=== PATIENT | female | born 1980 | race Caucasian/White ===

== ENCOUNTER 2019-08-08 13:42 | Inpatient (IN) | payer MEDICARE, MEDICAID, SELFPAY ==
[2019-08-08] VITALS (90 sets, daily range): BP systolic 0–140; BP diastolic 0–79; PULSE 60–105; RESP 16–18; TEMP 36.9; O2SAT 95–100; BMI 25.0
[2019-08-08] MEDS: dextrose 5%-lactated ringers 1,000 ML 125 ML IV (14:20)
[2019-08-08] MEDS: ampicillin 2,000 MG in sodium chloride 0.9% (plus) 50 ML 100 MG IV (14:20)
[2019-08-08 14:41] LABS: Basophils % 0.3 %; Eosinophils # 0.1 10^3/uL (0.0-0.8); Eosinophils % 0.4 %; Hematocrit 29.5 % (37.0-47.0); Hemoglobin 9.9 g/dL (11.5-15.3); Lymphocytes # 1.4 10^3/uL (0.8-4.8); Lymphocytes % 10.2 %; Mean Corpuscular HGB Conc 33.6 g/dL (30.0-36.0); Mean Corpuscular Hemoglobin 31.2 pg (28.0-34.0); Mean Corpuscular Volume 93.1 fL (81-99); Mean Platelet Volume 10.6 fL (7.4-10.4); Monocytes # 0.7 10^3/uL (0.2-0.9); Monocytes % 5.3 %; Neutrophils # 11.5 10^3/uL (1.8-7.7); Neutrophils % 83.3 %; Nucleated Red Blood Cells % 0 %; Platelet Count 312 10^3/cmm (130-400); Red Blood Count 3.17 10^6/uL (4.1-5.3); Red Cell Distribution Width 12.4 % (12.1-15.1); White Blood Count 13.8 10^3/uL (4.0-10.0)
[2019-08-08 14:44] LABS: Amphetamines Screen Urine Negative (Negative); Barbiturates Screen Urine Negative (Negative); Benzodiazepines Screen Urine Negative (Negative); Cocaine Screen Urine Negative (Negative); Opiate Screen Urine Negative (Negative); PCP Screen Urine Negative (Negative); THC Screen Urine Positive (Negative)
[2019-08-08 15:00] LABS: Rapid Plasma Reagin Syphilis Nonreactive (Nonreactive)
[2019-08-08 15:07] LABS: Hepatitis B Surface Antigen Non-Reactive (Nonreactive)
[2019-08-08 15:17] LABS: HIV 1 & 2 Antibody Non-Reactive (Non-Reactiv); HIV 1 & 2 Antigen Non-Reactive (Non-Reactiv)
[2019-08-08 15:20] LABS: Hepatitis A Antibody IgM Non-Reactive (Nonreactive); Hepatitis B Core AB, Total Non-Reactive (Nonreactive); Hepatitis B Surface AB 4.5 (0-8.5); Hepatitis B Surface Antigen Non-Reactive (Nonreactive); Hepatitis C Virus Antibody Non-Reactive (Nonreactive)
[2019-08-08] MEDS: oxytocin 30 UNIT/500 ML BAG IV (16:30)
--- NOTE | 2019-08-08 17:46 | P.HP_ITS ---
Providers/Chief Complaint Admitting Physician: Dougie Wyatt MD Primary Care Provider: NATHALIE Mooney Chief Complaint: Spontaneous rupture of membranes. History of Present Illness Denice Velasquez is a 38 year old female with an EDC of 08/27/2019 by dates. She has had no care during this . She is a 6 para 3 female who does not have custody of any of her children. She has spontaneous rupture membranes and beginning contractions around 1300 today. She had no care and therefore no labs done prior to arrival. Since arrival, her b lood work has been done with blood type O+ and antibody screen negative. The remainder the labs are normal except she did have a positive drug screen for marijuana which she admitted to smoking prior to drawing the labs. She has been started on ampicillin intravenously as well as Pitocin augmentation as she was not rick very strong. She denies any significant medical problems in the past. Review of Systems General: Reports: 10 or more systems reviewed and unremarkable except in HPI and below Const: Denies: fever(s), chills, change in appetite or fatigue ENMT: Denies: throat pain or nasal discharge Card: Denies: chest pain, palpitations, irregular heart rhythm or edema Resp: Denies: dyspnea or productive cough GI: Denies: abdominal pain, nausea or vomiting : Reports: amenorrhea and other (Rick every 2 to 3 minutes.); Denies: flank pain or difficulty voiding Musc: Denies: neck pain, back pain, extremity pain or joint swelling Skin/Breast: Denies: rash Neuro: Denies: headache(s), numbness in extremities, weakness in extremities or sensory changes Psych: Denies: anxiety or depression Medications/Allergies Home Medications Medication Instructions Recorded Confirmed Last Taken Type citalopram [Celexa] 20 mg PO DAILY 08/08/19 08/08/19 Unknown History Allergies Allergy/AdvReac Type Severity Reaction Status Date / Time No Known Allergies Allergy Verified 08/08/19 14:35 PFSH Acute PFSH: Social History (Updated 08/08/19 @ 14:49 by Hardik Dorman RN) Smoking and tobacco status: heavy tobacco smoker Quit status (tobacco): not considering quitting Smoking risk assessment/counseling performed?: Yes Substance/Drug Use: current Substance/Drug use frequency: daily Substance/Drug use type: Marijuana Desire information about substance/drug rehabilitation?: No Counseling given: No Female Reproductive History: Date of last menstrual period: 11/20/18 : 6 Vitals/I&O/Wt Last Vital Signs Temp 98.5 F 08/08/19 15:30 Pulse 67 08/08/19 17:29 Resp 18 08/08/19 15:30 BP 127/61 08/08/19 17:29 08/08/19 08/08/19 08/08/19 06:59 14:59 22:59 Intake Total 50 / 50 4.00 / 54.00 Balance 50 / 50 4.00 / 54.00 Weight last 48 hrs Weight 62.142 kg Physical Exam Const: COMMON NORMALS: no acute distress, average body habitus, patient oriented x3, no limitations, healthy appearing and well nourished HENMT: COMMON NORMALS: moist oral mucous membranes Neck/C-Spine: COMMON NORMALS: full ROM and no lymphadenopathy Resp: COMMON NORMALS: normal respiratory effort, No retractions, No use of accessory muscles and clear to auscultation bilaterally Cardio: COMMON NORMALS: no JVD, regular rate, regular rhythm and No murmurs present (Cardio) GI: COMMON NORMALS: Normal to inspection, nondistended, normoactive bowel sounds present (She is with a fundal height approximately 36 cm.) : OB/EXTERNAL & SPECULUM: external exam normal MANUAL OB EXAM: dilated 3 cm, effaced 75% and station high AMNIOTIC FLUID: clear Back/Pelvis: COMMON NORMALS: no CVA tenderness and thoracic and lumbar spine normal to inspection Extremity: COMMON NORMALS: normal to inspection, full ROM and capillary refill normal Neuro: COMMON NORMALS: patient oriented x3, CN's II-XII intact bilaterally, moves all extremities, no focal motor deficits and no sensory deficits noted Psych: COMMON NORMALS: mental status grossly normal, cooperative and normal affect Data : 08/08/19 13:45 A&P Assessment and plan (1) Spontaneous rupture of membranes: Based on her dates given I suspect she is a little over 37 weeks gestation . Presently as she is leaking fluid and making cervical change we will not make any other changes except active induction as indicated. Status: Acute (2) : She is 6 para 3 and has not had any significant problems with other pregnancies or labor and delivery. Status: Acute (3) No care in current : Patient was seen [address] Paniagua about mid but she did not follow-up with him or another provider until now. She states that was because she was afraid of coronavirus. Status: Acute Attestations Medical Necessity Statement*: Patient has a term or near term in active labor after spontaneous rupture of membranes. She requires inpatient hospitalization for labor and delivery process and care. 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
[2019-08-08] MEDS: ampicillin 1,000 MG in sodium chloride 0.9% (plus) 50 ML 100 MG IV ×2 (18:02→23:19)
[2019-08-08] MEDS: fentaNYL 50 mcg/mL INJ 2mL IV (19:29)
[2019-08-08] MEDS: lactated ringers 1,000 ML 999 ML IV ×2 (19:33→21:20)
--- NOTE | 2019-08-08 21:05 | ANES.PREANE2 ---
Pre-Anesthetic Assessment Pre-Anesthetic Assessment: Height/Weight: Height 1.57 m Weight 62.142 kg Temp Pulse Resp BP 98.5 F 67 18 105/54 08/08/19 15:30 08/08/19 20:59 08/08/19 19:29 08/08/19 20:59 Preop Diagnosis: labor pain Proposed Procedure: epidural Familial anesthetic complications: none Social: Social History: Tobacco and No alcohol Packs per day: 1 Exam: Pre-Anes Outpt Exam: alert, oriented x 3, clear to auscultation bilaterally and regular rate & rhythm Airway: Submandibular: WNL Cervical ROM: WNL MP: 1 Dentition: Chipped Pulmonary: Pulmonary: None reported CV/HEM: CV/HEM: None reported : : None reported Hepatic: Hepatic: None reported GI: GI: None reported Metabolic: Metabolic: None reported Musc/skel: Musc/skel: None reported Neuropsych: Neuropsych: Anxiety and Depression Anesthetic Plan: ASA status: 2 Anesthesia: Eval. for regional block and Regional (specify below) Risk of > 500 ml blood loss (7ml/kg in children): No Meds/Allergies Current Medications: Current Medications Generic Name Dose Route Start Last Admin Trade Name Freq PRN Reason Stop Dose Admin Fentanyl 25 - 100 mcg 08/08/19 19:03 08/08/19 19:29 Sublimaze IV 25 mcg Q1H PRN Administration SEVERE PAIN Ampicillin Sodium 1,000 mg/ 50 mls @ 100 mls/ hr 08/08/19 17:51 08/08/19 19:34 Sodium Chloride IV Infused Q4H AUBREY Infusion Protocol Dextrose/Lactated Ringer's 1,000 mls @ 125 m ls/hr 08/08/19 14:00 08/08/19 19:30 Dextrose 5%-Lact ated Ringers IV 0 mls/hr .Q8H AUBREY Infusion Ampicillin Sodium 2,000 mg/ 50 mls @ 100 mls/ hr 08/08/19 14:00 08/08/19 14:50 Sodium Chloride IV Infused ONCE AUBREY Infusion Protocol Oxytocin 30 unit in 500 ml s @ 1 mls/hr 08/08/19 16:30 08/08/19 18:00 Pitocin IV 11 milliunit/min .Q24H AUBREY 11 mls/hr Titration Protocol 1 MILLIUNIT/MIN PFSH Anesthesia PFSH: Social History (Updated 08/08/19 @ 14:49 by Hardik Dorman RN) Smoking and tobacco status: heavy tobacco smoker Quit status (tobacco): not considering quitting Smoking risk assessment/counseling performed?: Yes Substance/Drug Use: current Substance/Drug use frequency: daily Substance/Drug use type: Marijuana Desire information about substance/drug rehabilitation?: No Counseling given: No Female Reproductive History: Date of last menstrual period: 11/20/18 : 6 Data Anesthesia CBC & Chem 7: 08/08/19 13:45 Other Labs: Laboratory Results - last 48 hr 08/08/19 08/08/19 08/08/19 13:10 13:45 13:45 WBC 13.8 H RBC 3.17 L Hgb 9.9 L Hct 29.5 L MCV 93.1 MCH 31.2 MCHC 33.6 RDW 12.4 Plt Count 312 MPV 10.6 H Neut % (Auto) 83.3 Lymph % (Auto) 10.2 [place] % (Auto) 5.3 Eos % (Auto) 0.4 Baso % (Auto) 0.3 Neut # (Auto) 11.5 H Lymph # (Auto) 1.4 [place] # (Auto) 0.7 Eos # (Auto) 0.1 Baso # (Auto) 0.0 Nucleated RBC % (auto) 0 Nucleated RBCs # 0.0 Urine Opiates Screen Negative Ur Barbiturates Screen Negative Ur Phencyclidine Scrn Negative Ur Amphetamines Screen Negative U Benzodiazepines Scrn Negative Urine Cocaine Screen Negative U Marijuana (THC) Screen Positive H RPR Nonreactive Hepatitis A IgM Ab Hep Bs Antigen Hep Bs Antibody Hep B Core Total Ab Hepatitis C Antibody HIV 1&2 Ab & HIV 1 Ag HIV 1&2 Antibody Rubella IgG Antibody 96.0 H Blood Type Rho(D) Type Antibody Screen 08/08/19 08/08/19 08/08/19 13:45 13:45 13:45 WBC RBC Hgb Hct MCV MCH MCHC RDW Plt Count MPV Neut % (Auto) Lymph % (Auto) [place] % (Auto) Eos % (Auto) Baso % (Auto) Neut # (Auto) Lymph # (Auto) [place] # (Auto) Eos # (Auto) Baso # (Auto) Nucleated RBC % (auto) Nucleated RBCs # Urine Opiates Screen Ur Barbiturates Screen Ur Phencyclidine Scrn Ur Amphetamines Screen U Benzodiazepines Scrn Urine Cocaine Screen U Marijuana (THC) Screen RPR Hepatitis A IgM Ab Hep Bs Antigen Non-reactive Hep Bs Antibody Hep B Core Total Ab Hepatitis C Antibody HIV 1&2 Ab & HIV 1 Ag Non-reactive HIV 1&2 Antibody Non-reactive Rubella IgG Antibody Blood Type O Positive Rho(D) Type Positive Antibody Screen Negative 08/08/19 13:45 WBC RBC Hgb Hct MCV MCH MCHC RDW Plt Count MPV Neut % (Auto) Lymph % (Auto) [place] % (Auto) Eos % (Auto) Baso % (Auto) Neut # (Auto) Lymph # (Auto) [place] # (Auto) Eos # (Auto) Baso # (Auto) Nucleated RBC % (auto) Nucleated RBCs # Urine Opiates Screen Ur Barbiturates Screen Ur Phencyclidine Scrn Ur Amphetamines Screen U Benzodiazepines Scrn Urine Cocaine Screen U Marijuana (THC) Screen RPR Hepatitis A IgM Ab Non-reactive Hep Bs Antigen Non-reactive Hep Bs Antibody 4.5 Hep B Core Total Ab Non-reactive Hepatitis C Antibody Non-reactive HIV 1&2 Ab & HIV 1 Ag HIV 1&2 Antibody Rubella IgG Antibody Blood Type Rho(D) Type Antibody Screen Cardiac Studies: No Data to Display
--- NOTE | 2019-08-08 21:42 | P.ANES_ITS ---
Anesthesia Procedures Procedure/Date: 08/08/19 epidural Procedure Narrative: epidural complete, bolus given, epidural pump initiated with HANDLE ASSEMBLER education given, vitals taken during procedure using OBIX system and satisfactory throughout, patient admits to decrease pain, report of procedure to OB RN Epidural: Time Out Performed: Yes Consents Signed: Procedure Consent Consent: requested by attending/covering physician, from patient, risks and benefits reviewed and patient agrees to proceed Lumbar Level: L3-L4 Epidural position: sitting Epidural procedure: sterile prep of area, 1% lidocaine to numb the area (3 mL), 18 g needle, negative for paresthesia passed, neg for paresthesia, test dose given, 1.5% xylocaine 1:200k epi (5 mL), 0.2% Ropivacaine bolus ml (5 mL), placed PCEA, no systemic response, sterile dressing applied, L.U.D. no apparent complications and 0.2% Ropiavacaine @ mls/hr (13 mL/hr)
[2019-08-09] VITALS (18 sets, daily range): BP systolic 0–144; BP diastolic 0–78; PULSE 65–88; RESP 15–18; TEMP 36.5–36.9; O2SAT 98
--- NOTE | 2019-08-09 00:43 | PM.DELIVERY ---
Delivery Note: Date of delivery: August 09, 2019 this 38-year-old 6 now para 4 female with an EDC of 08/27/2019 had spontaneous rupture membranes around noon the day of admission. She began leaking fluid and having some contractions which began around 1. She arrived [facility] sometime shortly after that. She was evaluated grossly ruptured. She had given her report on her estimated due date based on dates. She had one visit with Dr. Paniagua early in her with no follow-up visits and no laboratory evaluation done during this . She did admit to smoking marijuana. Her blood type was found to be O+ with antibody screen negative. The remainder of her labs were normal. She was started on group B strep protocol as her group B strep status was unknown. She was given ampicillin and received several doses. Pitocin augmentation was added to her labor as she began slowly making changes through the afternoon into the night. She did receive epidural anesthesia and with position changes rapidly went from 5 cm to complete cervical dilatation. This physician was called and we were able to deliver a healthy, viable female by spontaneous vaginal delivery at 00 23. Upon delivery of the infant's head the mouth and nose were suctioned. The posterior hand was then coming out and had to be delivered prior to deliver the remainder of the anterior shoulder and remainder the infant. The infant was then suctioned again and placed on mother's abdomen. After a little over 1 minute, the umbilical cord was clamped and cut by the infant's mother. There was a nuchal cord x1 and a body cord x1 and the cord was also wrapped around the wrist. The umbilical cord had 3 vessels. There was no episiotomy or lacerations noted. The umbilical cord delivered spontaneously at 00 31. Inspection of the vagina and cervix were normal. Fungal massage and vaginal sweep was performed with a few clots obtained but no significant blood loss. weight 6 pounds 5 ounces with Apgars of 9 and 9 at 1 and 5 minutes respectively. Estimated blood loss approximately 146 mL. Pre-Delivery Course: This patient had no care. She did have [address] Paniagua during this but no more follow-up appointments. The patient claimed that she decided not to go see a physician secondary to the coronavirus. She also had no problems with her other pregnancies. Maternal blood type was O+. Drug screen was positive for marijuana which she had already admitted to smoking during this . No other problems with the laboratory evaluation. Delivery: Spontaneous vaginal delivery. A&P Assessment and plan (1) Spontaneous rupture of membranes: Status: Acute (2) : Status: Acute (3) No care in current : Status: Acute (4) Normal spontaneous vaginal delivery: Status: Acute Coding Level of Care Code Acute Restaurant Lead for [facility] Fwd Diagnoses Spontaneous rupture of membranes Z34.90 No care in current O09.30 Normal spontaneous vaginal delivery O80
[2019-08-09] MEDS: oxytocin 30 UNIT/500 ML BAG 600 UNIT IV (00:47)
[2019-08-09] MEDS: prenatal vitamin Capsule 1 CAP PO (08:27)
[2019-08-09] MEDS: docusate sodium 100 mg Capsule PO ×2 (08:27→18:31)
[2019-08-09] MEDS: citalopram 20 mg Tablet PO (08:27)
--- NOTE | 2019-08-09 08:41 | PC.NURSE ---
Protocol order put in for patient. Admission orders were discontinued post vaginal delivery. orders put in per Dr. Wyatt except for continuation of status orders. Physician notified.
--- NOTE | 2019-08-09 10:33 | PM.PN ---
Subjective Subjective: Interval history: Patient states that she is feeling a little confined and stressed secondary to not being able to go out and smoke. She has mild to moderate lochia and the infant is breast-feeding well. She is ambulating well and tolerating regular diet. Vitals/I&O/Wt Last Vital Signs Temp 98.1 F 08/09/19 06:30 Pulse 80 08/09/19 08:25 Resp 16 08/09/19 08:25 BP 111/64 08/09/19 08:25 Pulse Ox 95 08/08/19 23:14 08/08/19 08/09/19 08/09/19 22:59 06:59 14:59 Intake Total 1744.116 / 8961.035 3418.617 / 3699.733 930.267 / 930.267 Output Total 900 / 900 Balance 1744.116 / 1226.633 0690.617 / 2799.733 930.267 / 930.267 Weight last 48 hrs Weight 62.142 kg Physical Exam Const: COMMON NORMALS: no acute distress, average body habitus and healthy appearing Resp: COMMON NORMALS: normal respiratory effort, No retractions and clear to auscultation bilaterally AUSCULTATION: clear to auscultation bilaterally Cardio: COMMON NORMALS: regular rate, regular rhythm and No murmurs present (Cardio) RATE: regular rate RHYTHM: regular rhythm GI: COMMON NORMALS: Normal to inspection, nondistended, normoactive bowel sounds present, Soft to palpation and non-tender PALPATION: Yes Soft to palpation Extremity: COMMON NORMALS: normal to inspection and full ROM Neuro: COMMON NORMALS: CN's II-XII intact bilaterally, no focal motor deficits and no sensory deficits noted Psych: COMMON NORMALS: mental status grossly normal, Normal thought process present, normal affect and speech normal ACTIVITY/MOTOR BEHAVIOR: Yes appropriate eye contact SPEECH: Yes normal speech MOOD & AFFECT: Yes depressed mood (Patient is tearful and a little anxious.) THOUGHT PROCESS: Normal thought process present Urinary Catheter Management^: Blunt: Cath Placed During This Visit: yes, but has since been removed by the nurse Reason for Continuing Indwelling Catheter: Decision to DC Catheter Urinary Catheter Date of Insertion: 08/08/19 Urinary Catheter Time of Insertion: 22:25 Date Urinary Catheter Removed: 08/08/19 Time Urinary Catheter Discontinued: 23:56 Data : 08/08/19 13:45 A&P Assessment and plan (1) Normal spontaneous vaginal delivery: Patient is doing well status post delivery. Status: Acute (2) Nicotine addiction: Patient having symptoms of withdrawal. Discussed options and will begin transdermal nicotine at 14 mg an hour. Status: Acute Attestations Medical Necessity Statement*: This patient delivered earlier this morning and requires 1 more midnight hospital stay prior to discharge. 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
[2019-08-09] MEDS: lanolin oint 7 gm 1 APPLIC TOPICAL (10:39)
[2019-08-09] MEDS: nicotine 14 mg Patch 1 PATCH TRANSDERMA (10:39)
[2019-08-09] MEDS: benzocaine-menthol 78 gm Canister 1 SPRAY TOPICAL (10:40)
[2019-08-09] MEDS: HYDROcodone-acetaminophen 5-325 mg Tablet PO ×2 (12:57→18:31)
[2019-08-09] MEDS: azithromycin 250 mg Tablet 1000 MG PO (15:39)
[2019-08-09 20:44] LABS: Hematocrit 25.9 % (37.0-47.0); Hemoglobin 8.7 g/dL (11.5-15.3); Mean Corpuscular HGB Conc 33.6 g/dL (30.0-36.0); Mean Corpuscular Volume 95.2 fL (81-99); Mean Platelet Volume 10.2 fL (7.4-10.4); Platelet Count 221 10^3/cmm (130-400); Red Blood Count 2.72 10^6/uL (4.1-5.3); Red Cell Distribution Width 12.5 % (12.1-15.1); White Blood Count 13.1 10^3/uL (4.0-10.0)
[2019-08-10 04:30] VITALS: BP 123/73; PULSE 66; RESP 16; TEMP 36.7; O2SAT 97
[2019-08-10] MEDS: HYDROcodone-acetaminophen 5-325 mg Tablet PO ×2 (04:47→09:49)
--- NOTE | 2019-08-10 07:23 | P.DS_ITS ---
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 Change will be made in orders as necessary. Discussed options for control and presently she plans to use condoms. (2) Nicotine addiction: Status: Acute Problem details: Encouraged to quit smoking. (3) Chlamydia trachomatis infection: Status: Acute Problem details: Patient has been treated with 1 g of azithromycin here and I have recommended that she encourage her partner to get treated. Also encourage reevaluation at her 6-week checkup with Hamilton Charles. Reason for Visit Reason for Visit: Spontaneous rupture of membranes. Hospital Course Hospital Course: Patient arrived to [facility] labor and delivery with spontaneous rupture of membranes. She has had no care during this . She delivered by spontaneous vaginal delivery a healthy, viable female infant. She has done well and has had mild lochia and no other problems. She is ambulating well and tolerating a regular diet. She is felt to be stable for discharge. Information Peripartum Data: Delivery Method: Vaginal Physical Exam Const: COMMON NORMALS: no acute distress, average body habitus and healthy appearing Resp: COMMON NORMALS: normal respiratory effort, No retractions, No use of accessory muscles and clear to auscultation bilaterally AUSCULTATION: clear to auscultation bilaterally Cardio: COMMON NORMALS: regular rate, regular rhythm and No murmurs present (Cardio) RATE: regular rate RHYTHM: regular rhythm GI: COMMON NORMALS: Normal to inspection, nondistended, normoactive bowel sounds present, Soft to palpation and non-tender PALPATION: Yes Soft to palpation Back/Pelvis: COMMON NORMALS: thoracic and lumbar spine normal to inspection Extremity: COMMON NORMALS: normal to inspection and no pedal edema Neuro: COMMON NORMALS: CN's II-XII intact bilaterally, no focal motor deficits and no sensory deficits noted Psych: COMMON NORMALS: mental status grossly normal Urinary Catheter Management^: Blunt: Cath Placed During This Visit: yes, but has since been removed by the nurse Reason for Continuing Indwelling Catheter: Decision to DC Catheter Urinary Catheter Date of Insertion: 08/08/19 Urinary Catheter Time of Insertion: 22:25 Date Urinary Catheter Removed: 08/08/19 Time Urinary Catheter Discontinued: 23:56 Discharge Data Data Completed and Pending: Labs from last 24 hours 08/09/19 20:35 WBC 13.1 H RBC 2.72 L Hgb 8.7 L Hct 25.9 L MCV 95.2 MCH 32.0 MCHC 33.6 RDW 12.5 Plt Count 221 MPV 10.2 Vitals: Last Vital Signs Temp 98.0 F 08/10/19 04:30 Pulse 66 08/10/19 04:30 Resp 16 08/10/19 04:30 BP 123/73 08/10/19 04:30 Pulse Ox 97 08/10/19 04:30 Discharge Plan Discharge Patient Disposition: Home, Self-Care Condition: Stable Prescriptions: New docusate sodium 100 mg Capsule 100 mg PO BID Qty: 60 RF: 1 ibuprofen 800 mg Tablet 800 mg PO TID Qty: 90 RF: 2 Continued Celexa 20 mg tablet 20 mg PO DAILY RF: 0 Discharge Orders: Discharge Order (Routine); Ordered 08/10/19 Ordered By: Dougie Wyatt Referrals: Hamilton Charles, CHEMICAL BLENDER-C [Primary Care Provider] - 6 Weeks (. Also please check for clearance of chlamydia.) Discharge Diet: Usual diet Discharge Activity: Resume usual activity Activity Restrictions/Additional Instructions: Patient to inform her partner that he needs treated for chlamydia. 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 [employer] Time Spent in Discharge Care*: less than 30 min Specific Discharge Activities: Specific discharge activities: educating patient, documenting/other paperwork and evaluating patient/reviewing data Time Spent in Smoking Cessation: Time spent discussing smoking cessation with patient: 3 to 10 minutes Status at Discharge: Cognitive status at discharge: cognitively intact , Behavioral status at discharge: cooperative , Functional status at discharge: independent ambulation Overall status at discharge: patient is back to baseline Coding Level of Care Code Acute Hoister for [employer] Fwd Exam Comprehensive Diagnoses Normal spontaneous vaginal delivery O80 Nicotine addiction F17.200 Chlamydia trachomatis infection A56.8
[2019-08-10] MEDS: docusate sodium 100 mg Capsule PO (08:27)
[2019-08-10] MEDS: prenatal vitamin Capsule 1 CAP PO (08:27)
[2019-08-10] MEDS: citalopram 20 mg Tablet PO (08:27)
[2019-08-10] MEDS: nicotine 14 mg Patch 1 PATCH TRANSDERMA (08:28)
[2019-08-10 11:01] VITALS: BP 138/89; PULSE 80; RESP 17; TEMP 36.7
== END 2019-08-10 10:10 | disposition home or self-care (01) | DRG 806 ==
PROVIDERS: Admitting Provider Family Medicine; Family Provider Nurse Practitioner Family; PCP Nurse Practitioner; Visit Provider Family Medicine
DX: O98.32 Other infections with a predominantly sexual mode of transmission complicating childbirth (principal); O99.324 Drug use complicating childbirth; Z37.0 Single live birth; A56.8 Sexually transmitted chlamydial infection of other sites; Z3A.37 37 weeks gestation of pregnancy; O99.334 Smoking (tobacco) complicating childbirth; F17.210 Nicotine dependence, cigarettes, uncomplicated; O69.81X0 Labor and delivery complicated by cord around neck, without compression, not applicable or unspecified; O42.02 Full-term premature rupture of membranes, onset of labor within 24 hours of rupture; F12.90 Cannabis use, unspecified, uncomplicated
CPT/HCPCS: 12345; 36415; 51702; 59025; 59409; 80306; 83986; 85025; 85027; 86592; 86705; 86706; 86709; 86762; 86803; 86850; 86900; 87340; 87491; 87591; 87806; 96374; 98960; 99211; J0290; J2795; J3010; Q0144

== ENCOUNTER → 2020-04-15 11:22 | Outpatient (BNVA) | payer MEDICARE, MEDICAID, SELFPAY | PROVIDERS: Family Provider Nurse Practitioner Family; PCP Nurse Practitioner; Visit Provider Nurse Practitioner Family | DX: F32.1 Major depressive disorder, single episode, moderate (principal); G47.00 Insomnia, unspecified | CPT/HCPCS: 80053; 85025 ==

== ENCOUNTER → 2021-07-08 17:23 | Outpatient (BNVA) | payer MEDICARE, MEDICAID, SELFPAY | PROVIDERS: Family Provider Nurse Practitioner Family; PCP Family Medicine; Visit Provider Registered Nurse Neonatal Intensive Care | DX: N92.6 Irregular menstruation, unspecified (principal) | CPT/HCPCS: 81025 ==

== ENCOUNTER → 2023-04-14 13:21 | Outpatient (BNVA) | payer MEDICARE, MEDICAID, SELFPAY | PROVIDERS: Family Provider Nurse Practitioner Family; PCP Family Medicine; Visit Provider Nurse Practitioner Family | DX: J06.9 Acute upper respiratory infection, unspecified (principal); J02.0 Streptococcal pharyngitis | CPT/HCPCS: 87880 ==